=== PATIENT | male | born 1940 | race Caucasian/White ===

== ENCOUNTER 2016-10-28 16:18 | Emergency (ER) | payer OTHER ==
[~2016-10-28] VITALS: Ht 177.8 cm; Wt 110.1 kg
[~2016-10-28 16:18] MED LIST: COLACE100 MG PO; MILK OF MAGN PO
[2016-10-28 17:00] LABS: EOSINOPHIL (%) 0.1 % (0-5); HEMATOCRIT 37.3 % (38.0-50.0); IMMATURE GRANULOCYTE (%) 0.3 % (0.0-0.7); IMMATURE GRANULOCYTE COUNT 0.5 K/uL; LYMPHOCYTE COUNT 1.7 K/uL (1.0-2.8); MCH 30.7 PG (29.0-34.0); MCHC 34.9 G/DL (30.0-36.0); MCV 88.2 FL (86-99); MEAN PLAT.VOLUME 10.3 uM^3 (9.0-12.4); MONOCYTE (%) 7.5 % (3-12); MONOCYTE COUNT 1.3 K/uL (0-0.8); NEUTROPHIL (%) 82.1 % (45-76); NEUTROPHIL COUNT 13.6 K/uL (1.8-6.4); PLATELET COUNT 187 K/uL (156-360); RBC DIS.WIDTH-CV 12.5 % (11.8-14.6); RBC DIS.WIDTH-SD 39.5 % (39-53); RED BLOOD COUNT 4.23 M/uL (4.00-5.50); WHITE BLOOD COUNT 16.6 K/uL (4.1-10.2)
[2016-10-28 17:10] LABS: CHLORIDE 110 mEq/L (99-109); POTASSIUM 4.5 mEq/L (3.7-5.4); SODIUM 137 mEq/L (136-147)
[2016-10-28 17:13] LABS: GLUCOSE 215 mg/dL (70-99)
[2016-10-28 17:14] LABS: ANION GAP 14 MEQ/L (2-14)
[2016-10-28 17:15] LABS: TOTAL BILIRUBIN 0.6 mg/dL (0.0-1.0)
[2016-10-28 17:16] LABS: ALKALINE PHOSPHATASE 66 IU/L (3-129); GFR ESTIMATE (CALCULATED) 57 mL/min/
[2016-10-28 17:17] LABS: UREA NITROGEN (BUN) 21 mg/dL (9-23)
[2016-10-28 17:19] LABS: CREATINE KINASE 621 IU/L (1-294); TOTAL CK 621 IU/L (1-294)
[2016-10-28 17:25] LABS: CK-MB 10.5 ng/mL (0.0-4.9)
[2016-10-28 17:43] LABS: INTER. NORMALIZED RATIO 1.3; PROTHROMBIN TIME 13.1 (9.2-11.2); PTT 25.3 (25-32)
[2016-10-28] MEDS ORDERED: ESCITALOPRAM OX10 MG PO (18:44)
[2016-10-28] MEDS ORDERED: METOPROLOL SUCC25 MG PO (18:45)
[2016-10-28] MEDS ORDERED: CARBIDOPA-LEVO1 EAC8 PO (18:45)
[2016-10-28] MEDS ORDERED: CARBIDOPA/LEVO1 EACH PO (18:46)
[2016-10-28] MEDS ORDERED: XARELTO15 MG PO (18:46)
[2016-10-28 19:33] LABS: ADD MIUA? NO; BILIRUBIN NEGATIVE; BLOOD NEGATIVE; COLOR YELLOW ((YELLOW)); GLUCOSE (STRIP) NEGATIVE; KETONES TRACE; LEUKOCYTES NEGATIVE; NITRITE NEGATIVE; PH, URINE 5.5 (5-8); PROTEIN (STRIP) TRACE; SPECIFIC GRAVITY 1.042 (1.000-1.030); UCUL ADDED? NO; UROBILINOGEN 0.2 MG/DL (0.2-1.0)
[2016-10-28 22:13] VITALS: BP 99/66
== END 2016-10-28 22:15 | disposition short-term general hospital (02) ==
LOC: EME → TRA 16:18 → EDBD 16:18 → TRA 22:15
PROVIDERS: Emergency Medicine
PROC: 0W9930Z Drainage of Right Pleural Cavity with Drainage Device, Percutaneous Approach (ICD-10-PCS; principal; 2016-10-28)
DX: S27.2XXA Traumatic hemopneumothorax, initial encounter (principal); S42.251A Displaced fracture of greater tuberosity of right humerus, initial encounter for closed fracture; S72.001A Fracture of unspecified part of neck of right femur, initial encounter for closed fracture; S22.41XA Multiple fractures of ribs, right side, initial encounter for closed fracture; S27.321A Contusion of lung, unilateral, initial encounter; W10.8XXA Fall (on) (from) other stairs and steps, initial encounter; Y92.008 Other place in unspecified non-institutional (private) residence as the place of occurrence of the external cause; G20 Parkinson's disease; I10 Essential (primary) hypertension; Z86.73 Personal history of transient ischemic attack (TIA), and cerebral infarction without residual deficits; Z79.01 Long term (current) use of anticoagulants
CPT/HCPCS: 70450; 71010; 71260; 72125; 72129; 72132; 73060; 74177; 80053; 81003; 82550; 82553; 85025; 85610; 85730; 86850; 86900; 86901; 99281; 99285; J1170; J2250; J2270; J2405; J3010; J7030

== ENCOUNTER 2016-12-28 23:03 | Emergency (ER) | payer OTHER ==
[~2016-12-28] VITALS: Ht 185.4 cm; Wt 104.5 kg
[~2016-12-28 23:03] MED LIST changes: +CARBIDOPA-LEVO1 EAC8 PO; +CARBIDOPA/LEVO1 EACH PO; +ESCITALOPRAM OX10 MG PO; +METOPROLOL SUCC25 MG PO; +XARELTO15 MG PO
[2016-12-28 23:48] LABS: HEMATOCRIT 32.7 % (38.0-50.0); MCH 27.8 PG (29.0-34.0); MCHC 31.5 G/DL (30.0-36.0); MCV 88.4 FL (86-99); MEAN PLAT.VOLUME 9.3 uM^3 (9.0-12.4); PLATELET COUNT 251 K/uL (156-360); RBC DIS.WIDTH-CV 14.1 % (11.8-14.6); RBC DIS.WIDTH-SD 45.6 % (39-53); WHITE BLOOD COUNT 6.1 K/uL (4.1-10.2)
[2016-12-29] LABS: CHLORIDE 106 mEq/L (99-109); POTASSIUM 4.4 mEq/L (3.7-5.4); SODIUM 140 mEq/L (136-147)
[2016-12-29 00:02] LABS: GLUCOSE 110 mg/dL (70-99)
[2016-12-29 00:03] LABS: ANION GAP 8 MEQ/L (2-14)
[2016-12-29 00:06] LABS: GFR ESTIMATE (CALCULATED) > 59 mL/min/
[2016-12-29 00:07] LABS: UREA NITROGEN (BUN) 23 mg/dL (9-23)
[2016-12-29] MEDS ORDERED: XANAX0.5 MG PO (04:23)
[2016-12-29] MEDS ORDERED: XARELTO15 MG PO (05:22)
[2016-12-29 07:00] VITALS: BP 121/74
== END 2016-12-29 07:42 | disposition short-term general hospital (02) ==
LOC: EME → EDBD 23:03 → EME 23:03
PROVIDERS: Emergency Medicine
DX: T84.028A Dislocation of other internal joint prosthesis, initial encounter (principal); Z98.890 Other specified postprocedural states; Z96.611 Presence of right artificial shoulder joint; G20 Parkinson's disease; I10 Essential (primary) hypertension; Z79.01 Long term (current) use of anticoagulants
CPT/HCPCS: 73030; 80048; 85027; 99281; 99285; J3010

== ENCOUNTER 2017-01-02 03:28 | Emergency (ER) | payer OTHER ==
[~2017-01-02] VITALS: Ht 185.4 cm; Wt 101.3 kg
[~2017-01-02 03:28] MED LIST changes: +XANAX0.5 MG PO
[2017-01-02 06:44] VITALS: BP 97/66
== END 2017-01-02 07:34 ==
LOC: EME → EDBD 03:28 → EME 07:34
DX: S40.011A Contusion of right shoulder, initial encounter (principal); W06.XXXA Fall from bed, initial encounter; Y92.122 Bedroom in nursing home as the place of occurrence of the external cause; Z96.611 Presence of right artificial shoulder joint; I10 Essential (primary) hypertension; G20 Parkinson's disease; Z86.73 Personal history of transient ischemic attack (TIA), and cerebral infarction without residual deficits; Z96.641 Presence of right artificial hip joint
CPT/HCPCS: 73030; 99281; 99285

== ENCOUNTER 2017-04-22 14:36 | Inpatient (IN) | payer OTHER ==
[~2017-04-22] VITALS: Ht 185.4 cm; Wt 103.5 kg
[2017-04-22 15:50] LABS: EOSINOPHIL (%) 3.4 % (0-5); EOSINOPHIL COUNT 0.2 K/uL (0-0.3); HEMATOCRIT 36.4 % (38.0-50.0); IMMATURE GRANULOCYTE (%) 0.1 % (0.0-0.7); INSTRUMENT ABS NEUTROPHIL CT 4.1 K/uL; LYMPHOCYTE COUNT 1.9 K/uL (1.0-2.8); MCH 26.3 PG (29.0-34.0); MCHC 32.1 G/DL (30.0-36.0); MCV 81.8 FL (86-99); MEAN PLAT.VOLUME 10.2 uM^3 (9.0-12.4); MONOCYTE (%) 7.2 % (3-12); MONOCYTE COUNT 0.5 K/uL (0-0.8); NEUTROPHIL (%) 60.3 % (45-76); NEUTROPHIL COUNT 4.1 K/uL (1.8-6.4); PLATELET COUNT 218 K/uL (156-360); RBC DIS.WIDTH-CV 15.7 % (11.8-14.6); RBC DIS.WIDTH-SD 47.3 % (39-53); RED BLOOD COUNT 4.45 M/uL (4.00-5.50); WHITE BLOOD COUNT 6.8 K/uL (4.1-10.2)
[2017-04-22 16:00] LABS: CHLORIDE 105 mEq/L (99-109); SODIUM 139 mEq/L (136-147)
[2017-04-22 16:01] LABS: GLUCOSE 134 mg/dL (70-99)
[2017-04-22 16:03] LABS: ANION GAP 11 MEQ/L (2-14)
[2017-04-22 16:05] LABS: GFR ESTIMATE (CALCULATED) > 59 mL/min/
[2017-04-22 16:06] LABS: UREA NITROGEN (BUN) 15 mg/dL (9-23)
[2017-04-22 16:47] LABS: INTER. NORMALIZED RATIO 1.4; PROTHROMBIN TIME 15.4 SEC (10.2-12.9)
[2017-04-22] MEDS ORDERED: TYLENOL REGULA325 MG PO ×2 (18:26→18:37)
[2017-04-22] MEDS ORDERED: FEOSOL325 MG PO (18:27)
[2017-04-22] MEDS ORDERED: MELATIN3 MG PO ×2 (18:29→18:41)
[2017-04-22] MEDS ORDERED: LEXAPRO5 MG PO (18:29)
[2017-04-22] MEDS ORDERED: NEURONTIN100 MG PO (18:30)
[2017-04-22] MEDS ORDERED: MIRALAX255 GM PO (18:30)
[2017-04-22 18:31] LABS: PTT 29.6 SEC (25-37)
[2017-04-22] MEDS ORDERED: SEROQUEL50 MG PO (18:31)
[2017-04-22] MEDS ORDERED: TOPROL XL25 MG PO (18:32)
[2017-04-22] MEDS ORDERED: XARELTO20 MG PO (18:32)
[2017-04-22] MEDS ORDERED: CIPRO500 MG PO (18:33)
[2017-04-22] MEDS ORDERED: COLACE100 MG PO (18:34)
[2017-04-22] MEDS ORDERED: ZANTAC150 MG PO (18:35)
[2017-04-22] MEDS ORDERED: CLARITIN,ALAVAR10 MG PO (18:39)
[2017-04-22] MEDS ORDERED: ATIVAN0.5 MG PO (18:39)
[2017-04-22] MEDS ORDERED: OCEAN NASAL 0.645 ML BOTH NARES (18:41)
[2017-04-22] MEDS ORDERED: PRILOSEC20 MG PO (18:42)
[2017-04-22] MEDS ORDERED: TUMS500 MG PO (18:44)
[2017-04-22] MEDS ORDERED: TRAZODONE HCL50 MG PO (18:44)
[2017-04-22] MEDS ORDERED: TRAMADOL HCL50 MG PO (18:45)
[2017-04-22 23:09] LABS: IRON 34 MCG/DL (35-150)
[2017-04-22 23:10] VITALS: BP 133/74
[2017-04-23 03:37] VITALS: BP 138/79
[2017-04-23 07:03] LABS: HEMATOCRIT 34.9 % (38.0-50.0); MCH 25.8 PG (29.0-34.0); MCHC 31.8 G/DL (30.0-36.0); MCV 81.2 FL (86-99); MEAN PLAT.VOLUME 9.8 uM^3 (9.0-12.4); PLATELET COUNT 215 K/uL (156-360); RBC DIS.WIDTH-CV 15.9 % (11.8-14.6); RBC DIS.WIDTH-SD 47.2 % (39-53); WHITE BLOOD COUNT 7.3 K/uL (4.1-10.2)
[2017-04-23 07:44] LABS: ALKALINE PHOSPHATASE 121 IU/L (3-129); ANION GAP 9 MEQ/L (2-14); CHLORIDE 106 MEQ/L (99-109); GFR ESTIMATE (CALCULATED) > 59 mL/min/; GLUCOSE 113 mg/dL (70-99); POTASSIUM 4.1 MEQ/L (3.7-5.4); SAMPLE HEMOLYSIS CHECK 0; SAMPLE ICTERIC CHECK 0; SAMPLE LIPEMIA CHECK 0; SODIUM 140 MEQ/L (136-147); TOTAL BILIRUBIN 0.5 MG/DL (0.0-1.0); UREA NITROGEN (BUN) 14 mg/dL (9-23)
[2017-04-23 08:10] LABS: FERRITIN 36 NG/ML (22-322)
[2017-04-23 08:34] VITALS: BP 119/78
[2017-04-23 11:22] VITALS: BP 114/69
[2017-04-23 15:01] VITALS: BP 106/60
[2017-04-23 19:46] VITALS: BP 130/76
[2017-04-23 23:33] VITALS: BP 126/81
[2017-04-24 03:51] VITALS: BP 131/77
[2017-04-24 07:51] VITALS: BP 100/61
[2017-04-24 10:05] VITALS: BP 107/62
[2017-04-24 11:26] VITALS: BP 112/72
[2017-04-24] MEDS ORDERED: KEFLEX500 MG PO ×2 (13:08→15:55)
[2017-04-24] MEDS ORDERED: LOVENOX100 MG/1 M SC (13:09)
[2017-04-24 15:49] VITALS: BP 109/67
== END 2017-04-24 15:33 | disposition home or self-care (01) | DRG 300 ==
LOC: EME 14:36 → 5SOUTH 16:37 → EDOF 16:37 → 5SOUTH 22:29
PROVIDERS: Emergency Medicine; Internal Medicine
DX: I82.621 Acute embolism and thrombosis of deep veins of right upper extremity (principal); L03.113 Cellulitis of right upper limb; I10 Essential (primary) hypertension; K21.9 Gastro-esophageal reflux disease without esophagitis; I48.0 Paroxysmal atrial fibrillation; G20 Parkinson's disease; D50.9 Iron deficiency anemia, unspecified; F32.9 Major depressive disorder, single episode, unspecified; F41.9 Anxiety disorder, unspecified; T84.028D Dislocation of other internal joint prosthesis, subsequent encounter; Y79.2 Prosthetic and other implants, materials and accessory orthopedic devices associated with adverse incidents; Z96.611 Presence of right artificial shoulder joint; R29.6 Repeated falls; E66.9 Obesity, unspecified; Z91.81 History of falling; Z68.30 Body mass index [BMI] 30.0-30.9, adult; Z79.01 Long term (current) use of anticoagulants; Z86.73 Personal history of transient ischemic attack (TIA), and cerebral infarction without residual deficits; Z91.19 Patient's noncompliance with other medical treatment and regimen
CPT/HCPCS: 71010; 73200; 80048; 80053; 82728; 83540; 83605; 84466; 85025; 85027; 85610; 85730; 87040; 93971; 99281; 99285; J0696; J1650; J7040; J7050

== ENCOUNTER 2017-06-04 17:18 | Emergency (ER) | payer OTHER, BC ==
[~2017-06-04] VITALS: Ht 185.4 cm; Wt 105.4 kg
[~2017-06-04 17:18] MED LIST changes: +ATIVAN0.5 MG PO; +CIPRO500 MG PO; +CLARITIN,ALAVAR10 MG PO; +FEOSOL325 MG PO; +KEFLEX500 MG PO; +LEXAPRO5 MG PO; +LOVENOX100 MG/1 M SC; +MELATIN3 MG PO; +MIRALAX255 GM PO; +NEURONTIN100 MG PO; +OCEAN NASAL 0.645 ML BOTH NARES; +PRILOSEC20 MG PO; +SEROQUEL50 MG PO; +TOPROL XL25 MG PO; +TRAMADOL HCL50 MG PO; +TRAZODONE HCL50 MG PO; +TUMS500 MG PO; +TYLENOL REGULA325 MG PO; +XARELTO20 MG PO; +ZANTAC150 MG PO
[2017-06-04 19:33] LABS: MCH 26.6 PG (29.0-34.0); MCHC 31.9 G/DL (30.0-36.0); MCV 83.1 FL (86-99); MEAN PLAT.VOLUME 9.2 uM^3 (9.0-12.4); PLATELET COUNT 189 K/uL (156-360); RBC DIS.WIDTH-CV 15.8 % (11.8-14.6); RBC DIS.WIDTH-SD 48.1 % (39-53); RED BLOOD COUNT 4.33 M/uL (4.00-5.50); WHITE BLOOD COUNT 7.3 K/uL (4.1-10.2)
[2017-06-04 19:38] LABS: INTER. NORMALIZED RATIO 1.3; PROTHROMBIN TIME 14.4 SEC (10.2-12.9)
[2017-06-04 19:40] LABS: PTT 34.3 SEC (25-37)
[2017-06-04 19:44] LABS: CHLORIDE 105 mEq/L (99-109); SODIUM 139 mEq/L (136-147)
[2017-06-04 19:45] LABS: GLUCOSE 160 mg/dL (70-99)
[2017-06-04 19:47] LABS: ANION GAP 8 MEQ/L (2-14)
[2017-06-04 19:49] LABS: GFR ESTIMATE (CALCULATED) > 59 mL/min/
[2017-06-04 19:50] LABS: UREA NITROGEN (BUN) 18 mg/dL (9-23)
[2017-06-04] MEDS ORDERED: KEFLEX500 MG PO (21:10)
[2017-06-04 22:04] VITALS: BP 130/81
== END 2017-06-04 22:05 | disposition home or self-care (01) ==
LOC: EME 17:18
PROVIDERS: Physician Assistant
DX: L03.113 Cellulitis of right upper limb (principal); M79.89 Other specified soft tissue disorders; Z79.01 Long term (current) use of anticoagulants; Z86.718 Personal history of other venous thrombosis and embolism; I10 Essential (primary) hypertension; G20 Parkinson's disease; Z96.611 Presence of right artificial shoulder joint; Z86.73 Personal history of transient ischemic attack (TIA), and cerebral infarction without residual deficits; Z96.641 Presence of right artificial hip joint
CPT/HCPCS: 80048; 85027; 85610; 85730; 93971; 99281; 99284

== ENCOUNTER 2017-06-28 16:49 | Emergency (ER) | payer OTHER ==
[~2017-06-28] VITALS: Ht 167.6 cm; Wt 103.6 kg
[2017-06-28 20:47] VITALS: BP 141/74
== END 2017-06-28 20:48 ==
LOC: EME 16:49
DX: M25.511 Pain in right shoulder (principal); S09.90XA Unspecified injury of head, initial encounter; W05.0XXA Fall from non-moving wheelchair, initial encounter; Y92.129 Unspecified place in nursing home as the place of occurrence of the external cause; I10 Essential (primary) hypertension; F32.9 Major depressive disorder, single episode, unspecified; Z86.73 Personal history of transient ischemic attack (TIA), and cerebral infarction without residual deficits; Z96.611 Presence of right artificial shoulder joint; G20 Parkinson's disease; F41.9 Anxiety disorder, unspecified; Z96.641 Presence of right artificial hip joint
CPT/HCPCS: 70450; 73030; 99281; 99284

== ENCOUNTER 2017-08-29 21:42 | Emergency (ER) | payer OTHER ==
[~2017-08-29] VITALS: Ht 185.4 cm; Wt 101.1 kg
[2017-08-29 22:49] LABS: HEMATOCRIT 36.2 % (38.0-50.0); MCH 28.2 PG (29.0-34.0); MCHC 32.9 G/DL (30.0-36.0); MCV 85.8 FL (86-99); MEAN PLAT.VOLUME 9.3 uM^3 (9.0-12.4); PLATELET COUNT 206 K/uL (156-360); RBC DIS.WIDTH-CV 14.6 % (11.8-14.6); RBC DIS.WIDTH-SD 45.8 % (39-53); RED BLOOD COUNT 4.22 M/uL (4.00-5.50); WHITE BLOOD COUNT 5.6 K/uL (4.1-10.2)
[2017-08-29 22:57] LABS: INTER. NORMALIZED RATIO 1.4; PROTHROMBIN TIME 16.1 SEC (10.2-12.9)
[2017-08-29 22:59] LABS: PTT 34.7 SEC (25-37)
[2017-08-29 23:00] LABS: CHLORIDE 106 mEq/L (99-109); POTASSIUM 4.4 mEq/L (3.7-5.4); SODIUM 140 mEq/L (136-147)
[2017-08-29 23:01] LABS: GLUCOSE 110 mg/dL (70-99)
[2017-08-29 23:03] LABS: ANION GAP 8 MEQ/L (2-14)
[2017-08-29 23:05] LABS: GFR ESTIMATE (CALCULATED) > 59 mL/min/
[2017-08-29 23:06] LABS: UREA NITROGEN (BUN) 16 mg/dL (9-23)
[2017-08-29 23:13] LABS: TROP-I INTERPRETATION NEGATIVE; TROPONIN-I < 0.01 ng/mL (0.0-0.30)
[2017-08-30 02:15] VITALS: BP 102/67
== END 2017-08-30 02:17 ==
LOC: EME 21:42
PROVIDERS: Emergency Medicine
DX: F03.91 Unspecified dementia, unspecified severity, with behavioral disturbance (principal); R45.1 Restlessness and agitation; F32.9 Major depressive disorder, single episode, unspecified; F41.9 Anxiety disorder, unspecified; G20 Parkinson's disease; I10 Essential (primary) hypertension; Z86.73 Personal history of transient ischemic attack (TIA), and cerebral infarction without residual deficits; Z85.9 Personal history of malignant neoplasm, unspecified; Z96.641 Presence of right artificial hip joint; Z96.611 Presence of right artificial shoulder joint
CPT/HCPCS: 80048; 81003; 84484; 85027; 85610; 85730; 90839; 93005; 99281; 99284

== ENCOUNTER 2017-10-30 19:51 | Inpatient (IN) | payer OTHER ==
[~2017-10-30] VITALS: Ht 185.4 cm; Wt 115.0 kg
[~2017-10-30 19:51] MED LIST changes: +ATIVAN0.5 MG GT; -ATIVAN0.5 MG PO; +CLARITIN,ALAVAR10 MG GT; -CLARITIN,ALAVAR10 MG PO; +FEOSOL325 MG GT; -FEOSOL325 MG PO; +LEXAPRO5 MG GT; -LEXAPRO5 MG PO; +SEROQUEL100 MG GT; -SEROQUEL50 MG PO; +TRAMADOL HCL50 MG GT; -TRAMADOL HCL50 MG PO; +TRAZODONE HCL50 MG GT; -TRAZODONE HCL50 MG PO; +TUMS500 MG GT; -TUMS500 MG PO; +TYLENOL REGULA325 MG GT; +ZANTAC150 MG GT; -ZANTAC150 MG PO
[2017-10-30 20:34] LABS: BASE EXCESS 4.4 mEq/L (-3 to +3); BICARBONATE 26.7 mEq/L (22-26); PCO2 32 mm Hg (35-45); PO2 69 mm Hg (80-100); pH 7.53 (7.35-7.45)
[2017-10-30 20:35] LABS: COMMENTS - BLOOD GASES A+C+; DEVICE RA; FI02 21 %; SITE RR; TOTAL RESP RATE 22 resp/min
[2017-10-30 20:42] LABS: BASOPHIL (%) 0.1 % (0-1); EOSINOPHIL (%) 0 % (0-5); HEMATOCRIT 38.8 % (38.0-50.0); HEMOGLOBIN 12.9 G/DL (12.5-16.6); IMMATURE GRANULOCYTE (%) 0.7 % (0.0-0.7); LYMPHOCYTE (%) 7.6 % (15-42); LYMPHOCYTE COUNT 1.5 K/uL (1.0-2.8); MCH 29.2 PG (29.0-34.0); MCHC 33.2 G/DL (30.0-36.0); MCV 87.8 FL (86-99); MONOCYTE (%) 6.9 % (3-12); MONOCYTE COUNT 1.4 K/uL (0-0.8); NEUTROPHIL (%) 84.7 % (45-76); PLATELET COUNT 204 K/uL (156-360); RBC DIS.WIDTH-CV 14.8 % (11.8-14.6); RBC DIS.WIDTH-SD 47.8 % (39-53); RED BLOOD COUNT 4.42 M/uL (4.00-5.50)
[2017-10-30 20:50] LABS: APPEARANCE CLOUDY ((CLEAR)); BILIRUBIN NEGATIVE; BLOOD MODERATE; COLOR YELLOW ((YELLOW)); GLUCOSE (STRIP) NEGATIVE; KETONES NEGATIVE; LEUKOCYTES LARGE; NITRITE POSITIVE; PROTEIN (STRIP) 100; SPECIFIC GRAVITY 1.017 (1.000-1.030); UROBILINOGEN 0.2 MG/DL (0.2-1.0)
[2017-10-30 21:02] LABS: ALBUMIN 3.5 g/dL (3.2-4.8); CHLORIDE 108 mEq/L (99-109); POTASSIUM 4.1 mEq/L (3.7-5.4); SODIUM 141 mEq/L (136-147)
[2017-10-30 21:03] LABS: EPITHELIAL CELLS NONE SEEN /HPF; MUCUS NONE SEEN /LPF
[2017-10-30 21:04] LABS: BACTERIA 4+ /HPF; RED BLOOD CELLS 20-30 /HPF (0-5); UCUL ADDED? YES; WHITE BLOOD CELLS TNTC /HPF (0-5)
[2017-10-30 21:05] LABS: GLUCOSE 167 mg/dL (70-99); TOTAL PROTEIN 8.3 g/dL (6.4-8.3)
[2017-10-30 21:07] LABS: TOTAL BILIRUBIN 0.4 mg/dL (0.0-1.0)
[2017-10-30 21:08] LABS: ALKALINE PHOSPHATASE 108 IU/L (3-129)
[2017-10-30 21:10] LABS: AST (GOT) 30 IU/L (2-34)
[2017-10-30 21:11] LABS: ALT (GPT) 6 IU/L (3-49)
[2017-10-30 21:12] LABS: CREATININE 1.7 mg/dL (0.6-1.3); GFR ESTIMATE (CALCULATED) 42 mL/min/ (58.99-99999); LIPASE 1 U/L (1.0-51.0); UREA NITROGEN (BUN) 31 mg/dL (9-23)
[2017-10-30 21:14] LABS: TROP-I INTERPRETATION NEGATIVE; TROPONIN-I < 0.01 ng/mL (0.0-0.30)
[2017-10-30] MEDS ORDERED: FUROSEMIDE20 MG PO (23:22)
[2017-10-30] MEDS ORDERED: POTASSIUM CHLO10 ME3 PO (23:23)
[2017-10-30] MEDS ORDERED: SEROQUEL12.5 MG GT ×2 (23:24→23:25)
[2017-10-30] MEDS ORDERED: XARELTO20 MG GT (23:27)
[2017-10-30] MEDS ORDERED: DEPAKOTE250 MG GT (23:27)
[2017-10-30] MEDS ORDERED: BACLOFEN10 MG GT (23:29)
[2017-10-30] MEDS ORDERED: DULCOLAX10 MG PR (23:33)
[2017-10-30] MEDS ORDERED: PHILLIPS'400 MG/5 M PO (23:33)
[2017-10-30] MEDS ORDERED: MIRALAX255 GM PO (23:34)
[2017-10-31 01:37] VITALS: BP 102/58
[2017-10-31 03:28] VITALS: BP 99/58
[2017-10-31 05:26] LABS: BASOPHIL (%) 0.1 % (0-1); EOSINOPHIL (%) 0 % (0-5); HEMATOCRIT 37.5 % (38.0-50.0); IMMATURE GRANULOCYTE (%) 0.7 % (0.0-0.7); LYMPHOCYTE (%) 7.4 % (15-42); LYMPHOCYTE COUNT 1.3 K/uL (1.0-2.8); MCV 87.4 FL (86-99); MONOCYTE (%) 7.9 % (3-12); MONOCYTE COUNT 1.4 K/uL (0-0.8); NEUTROPHIL (%) 83.9 % (45-76); NEUTROPHIL COUNT 14.8 K/uL (1.8-6.4); PLATELET COUNT 202 K/uL (156-360); RBC DIS.WIDTH-CV 14.9 % (11.8-14.6); RED BLOOD COUNT 4.29 M/uL (4.00-5.50); WHITE BLOOD COUNT 17.6 K/uL (4.1-10.2)
[2017-10-31 05:53] LABS: CHLORIDE 109 MEQ/L (99-109); CREATININE 1.5 MG/DL (0.6-1.3); GFR ESTIMATE (CALCULATED) 48 mL/min/ (58.99-99999); GLUCOSE 153 mg/dL (70-99); POTASSIUM 3.9 MEQ/L (3.7-5.4); SODIUM 144 MEQ/L (136-147); UREA NITROGEN (BUN) 30 mg/dL (9-23)
[2017-10-31 08:59] VITALS: BP 124/78
[2017-10-31 09:13] LABS: HEMATOCRIT 36.1 % (38.0-50.0); HEMOGLOBIN 11.8 G/DL (12.5-16.6); MCH 28.4 PG (29.0-34.0); MCHC 32.7 G/DL (30.0-36.0); MCV 86.8 FL (86-99); PLATELET COUNT 199 K/uL (156-360); RBC DIS.WIDTH-CV 14.9 % (11.8-14.6); RBC DIS.WIDTH-SD 47.7 % (39-53); RED BLOOD COUNT 4.16 M/uL (4.00-5.50); WHITE BLOOD COUNT 16.3 K/uL (4.1-10.2)
[2017-10-31 11:39] VITALS: BP 117/61
[2017-10-31 16:10] VITALS: BP 132/89
[2017-10-31 19:30] VITALS: BP 129/68
[2017-11-01] VITALS (7 sets, daily range): BP systolic 100–135; BP diastolic 62–80
[2017-11-01 06:08] LABS: HEMATOCRIT 33.5 % (38.0-50.0); MCH 28.8 PG (29.0-34.0); MCHC 32.8 G/DL (30.0-36.0); MCV 87.7 FL (86-99); PLATELET COUNT 173 K/uL (156-360); RBC DIS.WIDTH-CV 15.2 % (11.8-14.6); RBC DIS.WIDTH-SD 48.8 % (39-53); RED BLOOD COUNT 3.82 M/uL (4.00-5.50); WHITE BLOOD COUNT 9.3 K/uL (4.1-10.2)
[2017-11-01 06:12] LABS: INTER. NORMALIZED RATIO 1.8
[2017-11-01 06:23] LABS: CHLORIDE 113 MEQ/L (99-109); CREATININE 1.5 MG/DL (0.6-1.3); GFR ESTIMATE (CALCULATED) 48 mL/min/ (58.99-99999); GLUCOSE 133 mg/dL (70-99); POTASSIUM 3.5 MEQ/L (3.7-5.4); SODIUM 147 MEQ/L (136-147); UREA NITROGEN (BUN) 33 mg/dL (9-23)
[2017-11-02 04:39] VITALS: BP 125/79
[2017-11-02 08:42] VITALS: BP 139/90
[2017-11-02 09:04] LABS: CHLORIDE 117 MEQ/L (99-109); CREATININE 1.4 MG/DL (0.6-1.3); GFR ESTIMATE (CALCULATED) 52 mL/min/ (58.99-99999); GLUCOSE 158 mg/dL (70-99); POTASSIUM 3.6 MEQ/L (3.7-5.4); SODIUM 147 MEQ/L (136-147); UREA NITROGEN (BUN) 29 mg/dL (9-23)
[2017-11-02 11:20] VITALS: BP 140/92
[2017-11-02 15:13] VITALS: BP 121/84
[2017-11-02 19:29] VITALS: BP 120/66
[2017-11-02 22:30] VITALS: BP 133/85
[2017-11-03 03:38] VITALS: BP 117/71
[2017-11-03 08:45] VITALS: BP 127/77
[2017-11-03 12:12] VITALS: BP 127/72
[2017-11-03 15:37] VITALS: BP 132/89
[2017-11-03 20:07] VITALS: BP 121/82
[2017-11-03 22:20] VITALS: BP 131/74
[2017-11-04] VITALS (8 sets, daily range): BP systolic 112–163; BP diastolic 60–94
[2017-11-04 04:53] LABS: HEMATOCRIT 33.3 % (38.0-50.0); MCH 29.3 PG (29.0-34.0); MCV 88.6 FL (86-99); PLATELET COUNT 188 K/uL (156-360); RBC DIS.WIDTH-CV 15.1 % (11.8-14.6); RBC DIS.WIDTH-SD 49.1 % (39-53); RED BLOOD COUNT 3.76 M/uL (4.00-5.50); WHITE BLOOD COUNT 7.8 K/uL (4.1-10.2)
[2017-11-04 05:04] LABS: POTASSIUM 3.6 mEq/L (3.7-5.4); SODIUM 152 mEq/L (136-147)
[2017-11-04 05:05] LABS: GLUCOSE 127 mg/dL (70-99)
[2017-11-04 05:09] LABS: CREATININE 1.2 mg/dL (0.6-1.3); GFR ESTIMATE (CALCULATED) > 59 mL/min/ (58.99-99999)
[2017-11-04 05:10] LABS: UREA NITROGEN (BUN) 19 mg/dL (9-23)
[2017-11-04 05:17] LABS: CHLORIDE 122 mEq/L (99-109)
[2017-11-04 06:06] LABS: ABS NEUTROPHIL COUNT 6.1; ATYPICAL LYMPHOCYTE 1.7 %; EOSINOPHIL ABS CT 0.1; EOSINOPHILS 0.9 % (0-5.0); LYMPHOCYTES 11.3 % (15.0-45.0); MONOCYTES 7.8 % (0-9.0); NUCLEATED RBC'S 0.9; SEG.NEUTROPHILS 78.3 % (46.0-76.0); SMUDGE CELLS 5.2
[2017-11-04 15:40] LABS: CHLORIDE 115 MEQ/L (99-109); CREATININE 1.1 MG/DL (0.6-1.3); GFR ESTIMATE (CALCULATED) > 59 mL/min/ (58.99-99999); GLUCOSE 178 mg/dL (70-99); POTASSIUM 3.7 MEQ/L (3.7-5.4); SODIUM 152 MEQ/L (136-147); UREA NITROGEN (BUN) 17 mg/dL (9-23)
[2017-11-05 06:50] LABS: HEMATOCRIT 35.1 % (38.0-50.0); HEMOGLOBIN 11.3 G/DL (12.5-16.6); MCH 28.7 PG (29.0-34.0); MCHC 32.2 G/DL (30.0-36.0); MCV 89.1 FL (86-99); PLATELET COUNT 226 K/uL (156-360); RBC DIS.WIDTH-CV 14.8 % (11.8-14.6); RBC DIS.WIDTH-SD 48.7 % (39-53); RED BLOOD COUNT 3.94 M/uL (4.00-5.50); WHITE BLOOD COUNT 8.6 K/uL (4.1-10.2)
[2017-11-05 07:13] LABS: CHLORIDE 115 MEQ/L (99-109); CREATININE 1.1 MG/DL (0.6-1.3); GFR ESTIMATE (CALCULATED) > 59 mL/min/ (58.99-99999); GLUCOSE 170 mg/dL (70-99); POTASSIUM 3.2 MEQ/L (3.7-5.4); SODIUM 150 MEQ/L (136-147); UREA NITROGEN (BUN) 13 mg/dL (9-23)
[2017-11-05 07:28] VITALS: BP 127/88
[2017-11-05 12:00] VITALS: BP 125/78
[2017-11-05 16:00] VITALS: BP 145/86
[2017-11-05 19:30] VITALS: BP 130/83
[2017-11-05 23:04] VITALS: BP 133/75
[2017-11-06 03:14] VITALS: BP 138/78
[2017-11-06 06:40] LABS: BASOPHIL (%) 0.4 % (0-1); EOSINOPHIL (%) 1.4 % (0-5); EOSINOPHIL COUNT 0.1 K/uL (0-0.3); HEMATOCRIT 38.2 % (38.0-50.0); HEMOGLOBIN 12.1 G/DL (12.5-16.6); IMMATURE GRANULOCYTE (%) 1.1 % (0.0-0.7); LYMPHOCYTE (%) 24.7 % (15-42); LYMPHOCYTE COUNT 2.3 K/uL (1.0-2.8); MCH 28.1 PG (29.0-34.0); MCHC 31.7 G/DL (30.0-36.0); MCV 88.8 FL (86-99); MONOCYTE (%) 8.5 % (3-12); MONOCYTE COUNT 0.8 K/uL (0-0.8); NEUTROPHIL (%) 63.9 % (45-76); PLATELET COUNT 196 K/uL (156-360); RBC DIS.WIDTH-CV 14.8 % (11.8-14.6); RBC DIS.WIDTH-SD 47.9 % (39-53); WHITE BLOOD COUNT 9.3 K/uL (4.1-10.2)
[2017-11-06 07:06] LABS: CHLORIDE 111 MEQ/L (99-109); CREATININE 1.2 MG/DL (0.6-1.3); GFR ESTIMATE (CALCULATED) > 59 mL/min/ (58.99-99999); GLUCOSE 154 mg/dL (70-99); MAGNESIUM 2.3 mg/dl (1.3-2.7); PHOSPHORUS 2.7 mg/dL (2.5-4.9); SODIUM 148 MEQ/L (136-147); UREA NITROGEN (BUN) 11 mg/dL (9-23)
[2017-11-06 07:07] LABS: POTASSIUM 3.9 MEQ/L (3.7-5.4)
[2017-11-06 08:00] VITALS: BP 140/86
[2017-11-06 11:46] VITALS: BP 131/68
[2017-11-06 16:17] VITALS: BP 108/75
[2017-11-06 19:30] VITALS: BP 110/67
[2017-11-07 00:33] VITALS: BP 126/76
[2017-11-07 04:28] VITALS: BP 98/56
[2017-11-07 06:47] LABS: HEMATOCRIT 37.6 % (38.0-50.0); HEMOGLOBIN 12.2 G/DL (12.5-16.6); MCH 28.8 PG (29.0-34.0); MCHC 32.4 G/DL (30.0-36.0); MCV 88.9 FL (86-99); PLATELET COUNT 251 K/uL (156-360); RBC DIS.WIDTH-CV 14.7 % (11.8-14.6); RBC DIS.WIDTH-SD 47.4 % (39-53); RED BLOOD COUNT 4.23 M/uL (4.00-5.50); WHITE BLOOD COUNT 9.1 K/uL (4.1-10.2)
[2017-11-07 07:07] LABS: CHLORIDE 107 MEQ/L (99-109); CREATININE 1.2 MG/DL (0.6-1.3); GFR ESTIMATE (CALCULATED) > 59 mL/min/ (58.99-99999); GLUCOSE 153 mg/dL (70-99); POTASSIUM 3.6 MEQ/L (3.7-5.4); SODIUM 146 MEQ/L (136-147); UREA NITROGEN (BUN) 11 mg/dL (9-23)
[2017-11-07 07:27] VITALS: BP 104/60
[2017-11-07 16:50] VITALS: BP 98/64
[2017-11-07 23:43] VITALS: BP 113/70
[2017-11-08 06:37] LABS: HEMATOCRIT 41.2 % (38.0-50.0); HEMOGLOBIN 13.1 G/DL (12.5-16.6); MCH 28.4 PG (29.0-34.0); MCHC 31.8 G/DL (30.0-36.0); MCV 89.4 FL (86-99); PLATELET COUNT 242 K/uL (156-360); RBC DIS.WIDTH-CV 14.6 % (11.8-14.6); RBC DIS.WIDTH-SD 47.5 % (39-53); RED BLOOD COUNT 4.61 M/uL (4.00-5.50); WHITE BLOOD COUNT 8.5 K/uL (4.1-10.2)
[2017-11-08 07:01] LABS: CHLORIDE 111 MEQ/L (99-109); CREATININE 1.2 MG/DL (0.6-1.3); GFR ESTIMATE (CALCULATED) > 59 mL/min/ (58.99-99999); GLUCOSE 155 mg/dL (70-99); POTASSIUM 3.9 MEQ/L (3.7-5.4); SODIUM 147 MEQ/L (136-147); UREA NITROGEN (BUN) 13 mg/dL (9-23)
[2017-11-08 07:46] VITALS: BP 120/69
[2017-11-08 20:48] VITALS: BP 124/75
[2017-11-08 23:02] VITALS: BP 112/68
[2017-11-09 08:21] VITALS: BP 107/59
[2017-11-09 11:19] LABS: CHLORIDE 109 MEQ/L (99-109); CREATININE 1.3 MG/DL (0.6-1.3); GFR ESTIMATE (CALCULATED) 57 mL/min/ (58.99-99999); GLUCOSE 175 mg/dL (70-99); POTASSIUM 3.3 MEQ/L (3.7-5.4); SODIUM 144 MEQ/L (136-147); UREA NITROGEN (BUN) 12 mg/dL (9-23)
[2017-11-09 16:38] VITALS: BP 115/50
[2017-11-09 23:35] VITALS: BP 118/74
[2017-11-10 07:01] LABS: CHLORIDE 107 MEQ/L (99-109); CREATININE 1.2 MG/DL (0.6-1.3); GFR ESTIMATE (CALCULATED) > 59 mL/min/ (58.99-99999); GLUCOSE 226 mg/dL (70-99); POTASSIUM 3.6 MEQ/L (3.7-5.4); SODIUM 143 MEQ/L (136-147); UREA NITROGEN (BUN) 15 mg/dL (9-23)
[2017-11-10 08:22] VITALS: BP 111/74
[2017-11-10 16:00] VITALS: BP 121/70
[2017-11-10 23:27] VITALS: BP 131/60
[2017-11-11 05:41] LABS: BASOPHIL (%) 0.3 % (0-1); EOSINOPHIL (%) 1.2 % (0-5); EOSINOPHIL COUNT 0.1 K/uL (0-0.3); HEMATOCRIT 35.7 % (38.0-50.0); HEMOGLOBIN 11.5 G/DL (12.5-16.6); IMMATURE GRANULOCYTE (%) 0.9 % (0.0-0.7); LYMPHOCYTE (%) 18.2 % (15-42); LYMPHOCYTE COUNT 2.1 K/uL (1.0-2.8); MCH 28.6 PG (29.0-34.0); MCHC 32.2 G/DL (30.0-36.0); MCV 88.8 FL (86-99); MONOCYTE (%) 6.6 % (3-12); MONOCYTE COUNT 0.8 K/uL (0-0.8); NEUTROPHIL (%) 72.8 % (45-76); NEUTROPHIL COUNT 8.5 K/uL (1.8-6.4); PLATELET COUNT 225 K/uL (156-360); RBC DIS.WIDTH-CV 14.8 % (11.8-14.6); RBC DIS.WIDTH-SD 47.7 % (39-53); RED BLOOD COUNT 4.02 M/uL (4.00-5.50); WHITE BLOOD COUNT 11.7 K/uL (4.1-10.2)
[2017-11-11 06:04] LABS: CHLORIDE 109 MEQ/L (99-109); CREATININE 1.2 MG/DL (0.6-1.3); GFR ESTIMATE (CALCULATED) > 59 mL/min/ (58.99-99999); GLUCOSE 227 mg/dL (70-99); POTASSIUM 3.8 MEQ/L (3.7-5.4); SODIUM 143 MEQ/L (136-147); UREA NITROGEN (BUN) 20 mg/dL (9-23)
[2017-11-11 07:30] VITALS: BP 108/79
[2017-11-11] MEDS ORDERED: ANCEF,KEFZOL1 GM IV (12:30)
[2017-11-11] MEDS ORDERED: SPIRONOLACTONE25 MG GT (12:31)
[2017-11-11] MEDS ORDERED: TRAMADOL HCL50 MG GT (12:32)
[2017-11-11] MEDS ORDERED: NOVOLOG 10100 UNITS/ SC (12:50)
[2017-11-11] MEDS ORDERED: ATIVAN0.5 MG GT (12:59)
== END 2017-11-11 15:21 | DRG 871 ==
LOC: EME → EDBD 19:51 → EME 19:51 → EDOF 22:23 → 4EAST 22:23 → 5EAST 22:23 → ENRESERV 22:25 → EDOF 22:31 → ENRESERV 22:33 → 4EAST 10-31 00:53 → ENRESERV 11-04 14:22 → 5EAST 11-04 16:47 → ENPENDDIS 11-11 14:30 → 5EAST 11-11 15:21
PROVIDERS: Emergency Medicine; Hospitalist; Internal Medicine; Internal Medicine Nephrology; Physician Assistant
PROC: 0DH63UZ Insertion of Feeding Device into Stomach, Percutaneous Approach (ICD-10-PCS; principal; 2017-11-08)
DX: A41.51 Sepsis due to Escherichia coli [E. coli] (principal); N10 Acute pyelonephritis; N30.90 Cystitis, unspecified without hematuria; N17.9 Acute kidney failure, unspecified; G93.41 Metabolic encephalopathy; E87.0 Hyperosmolality and hypernatremia; E87.6 Hypokalemia; R63.0 Anorexia; R62.7 Adult failure to thrive; I12.9 Hypertensive chronic kidney disease with stage 1 through stage 4 chronic kidney disease, or unspecified chronic kidney disease; E11.22 Type 2 diabetes mellitus with diabetic chronic kidney disease; N18.3 Chronic kidney disease, stage 3 (moderate); F03.90 Unspecified dementia, unspecified severity, without behavioral disturbance, psychotic disturbance, mood disturbance, and anxiety; G20 Parkinson's disease; E03.9 Hypothyroidism, unspecified; K21.9 Gastro-esophageal reflux disease without esophagitis; I48.2 Chronic atrial fibrillation; K44.9 Diaphragmatic hernia without obstruction or gangrene; K59.00 Constipation, unspecified; M60.9 Myositis, unspecified; R79.1 Abnormal coagulation profile; T45.515A Adverse effect of anticoagulants, initial encounter; Z96.611 Presence of right artificial shoulder joint; Z79.01 Long term (current) use of anticoagulants; Z86.718 Personal history of other venous thrombosis and embolism
CPT/HCPCS: 36600; 70450; 71045; 74176; 80048; 80048 91; 80053; 81003; 82803; 82948; 83605; 83690; 83735; 83935; 84100; 84300; 84484; 85025; 85027; 85610; 85730; 87040; 87077; 87086; 87186; 87502; 87641; 87801; 93005; 93971; 97530 GP; 99202; 99281; 99285; J0690; J0696; J1644; J1815; J2543; J3010; J3370; J3480; J7030; J7050; J7070; J7120; S0074